=== PATIENT | male | born 1970 | race Caucasian/White ===

== ENCOUNTER 2018-01-21 18:48 | Emergency (ER) | payer BC ==
[2018-01-21] MEDS ORDERED: Rocephin 1000 MG INJ IM ONE (19:10)
[2018-01-21] MEDS ORDERED: XYLOCAINE 1%/Epi 1:100000 MDV 20 ML IJ ONE (19:11)
[2018-01-21] MEDS ORDERED: Adacel Vial IM ONE ×2 (19:11→19:16)
[2018-01-21] MEDS ORDERED: BACIGUENT PACKET TP ONE (19:11)
[2018-01-21] MEDS ORDERED: BACIGUENT PACKET ONE ×2 (19:15→21:16)
[2018-01-21] MEDS ORDERED: XYLOCAINE 1%/Epi 1:100000 MDV 20 ML ONE (19:15)
[2018-01-21] MEDS ORDERED: Rocephin 1000 MG INJ ONE (19:15)
--- NOTE | 2018-01-21 19:18 | ERPHSYRPT ---
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 LAST TETANUS IS UNKNOWN. Allergies/Adverse Reactions: No Known Drug Allergies Allergy (Verified 01/21/18 18:58) Home Medications: Oxycodone HCl/Acetaminophen [Oxycodon-Acetaminophen 7.5-325] 1 tab PO UD [History] Hx Tetanus, Diphtheria Vaccination/Date Given: No Hx Influenza Vaccination/Date Given: No Hx Pneumococcal Vaccination/Date Given: No Immunizations Up to Date: Yes - Review of Systems Skin: Other (LACERATION OF THE LEFT KNEE TODAY) - Past Medical History Pertinent Past Medical History: Yes Neurological History: No Pertinent History ENT History: No Pertinent History Cardiac History: No Pertinent History Respiratory History: No Pertinent History Endocrine Medical History: No Pertinent History Musculoskeletal History: Other GI Medical History: No Pertinent History History: No Pertinent History Psycho-Social History: No Pertinent History Male Reproductive Disorders: No Pertinent History Other Medical History: scoleosis - Past Surgical History Past Surgical History: Yes Gastrointestinal: Hernia Repair Other Surgical History: rt and left inguinal hernia repairs. orif of rt hand with pins - Social History Smoking Status: Current every day smoker How long have you smoked: 20yrs Exposure to second hand smoke: Yes Drug Use: none Patient Lives Alone: No - Nursing Vital Signs Nursing Vital Signs: Initial Vital Signs Temperature 99 F 01/21/18 18:55 Pulse Rate 99 H 01/21/18 18:55 Respiratory Rate 18 01/21/18 18:55 Blood Pressure 148/100 01/21/18 18:55 O2 Sat by Pulse Oximetry 98 01/21/18 18:55 Pain Scale Pain Intensity 0 - Physical Exam General Appearance: alert Hips Exam: left: normal range of motion Legs Exam: left leg: normal range of motion Knees Exam: left knee: normal range of motion Ankle Exam: left ankle: normal range of motion Foot Exam: left foot: normal range of motion Neuro/Tendon Exam: normal sensation, normal motor functions, normal tendon functions Mental Status Exam: alert, cooperative Skin Exam: laceration (7 CM & 3 CM LACERATIONS OF THE LEFT KNEE OVER PATELLA.) SpO2: 98 Oxygen Delivery: Room Air Procedures - Laceration/Wound Repair Left Knee Wound Location: Left (KNEE(7 CM & 3 CM LACERATIONS OF THE LEFT KNEE = 10 CM TOTAL).) Wound Length (cm): 10 Wound's Depth, Shape: superficial Wound Explored: clean Irrigated: Yes Hibiclens Prep: Yes Anesthesia: 1% lidocaine w/ Epi Volume Anesthetic (ccs): 3 Wound Repaired With: sutures Suture Size/Type: 4-0, prolene Layer Closure?: No - Course Nursing assessment & vital signs reviewed: Yes Ordered Tests: Active Orders 24 hr Category Date Time Status Prepare for Sutures STAT Care 01/21/18 19:11 Active Sutures STAT Care 01/21/18 19:12 Active Wound Care STAT Care 01/21/18 19:11 Active Medication Summary Discontinued Medications Generic Name Dose Route Start Last Admin Trade Name Freq PRN Reason Stop Dose Admin Bacitracin 0.9 gm 01/21/18 19:11 01/21/18 19:23 Baciguent Packet TP 01/21/18 19:12 0.9 gm STAT ONE Administration Bacitracin Confirm 01/21/18 19:15 Baciguent Packet Administered 01/21/18 19:16 Dose 1 gm .ROUTE .STK-MED ONE Ceftriaxone Sodium 1,000 mg 01/21/18 19:10 01/21/18 19:25 Rocephin 1000 Mg Inj IM 01/21/18 19:11 1,000 mg STAT ONE Administration Ceftriaxone Sodium Confirm 01/21/18 19:15 Rocephin 1000 Mg Inj Administered 01/21/18 19:16 Dose 1,000 mg .ROUTE .STK-MED ONE Diphtheria/Tetanus/Acell Pertussis 0.5 ml 01/21/18 19:11 01/21/18 19:23 Adacel Vial IM 01/21/18 19:12 0.5 ml .ONCE ONE Administration Diphtheria/Tetanus/Acell Pertussis Confirm 01/21/18 19:16 Adacel Vial Administered 01/21/18 19:17 Dose 0.5 ml IM .STK-MED ONE Lidocaine HCl Confirm 01/21/18 19:19 Xylocaine 1% Hcl 20 Ml Mdv Administered 01/21/18 19:20 Dose 3 ml .ROUTE .STK-MED ONE Lidocaine/Epinephrine 5 ml 01/21/18 19:11 01/21/18 19:25 Xylocaine 1%/Epi [id number] Mdv 20 Ml IJ 01/21/18 19:12 5 ml STAT ONE Administration Lidocaine/Epinephrine Confirm 01/21/18 19:15 Xylocaine 1%/Epi 1:[id number] Mdv 20 Ml Administered 01/21/18 19:16 Dose 5 ml .ROUTE .STK-MED ONE - Departure Time of Disposition: 21:07 Departure Disposition: Home Clinical Impression: 7 CM & 3 CM LACERATIONS OF THE LEFT KNEE Condition: Stable Critical Care Time: No Referrals: YIN LUTHER [Primary Care Provider] - Instructions: Laceration Repair With Stitches (DC) Additional Instructions: FOLLOW UP WITH PRIVATE DOCTOR TOMORROW. ELEVATE LEFT KNEE ABOVE HEART LEVEL FOR 24 HOURS. KEEP CLEAN & DRY. NEOSPORIN & BANDAGE DAILY FOR THE NEXT 10 DAYS. HAVE SUTURES REMOVED IN 10 DAYS. Prescriptions: Cephalexin Monohydrate [Keflex] 500 mg PO TID #30 capsule
[2018-01-21] MEDS ORDERED: XYLOCAINE 1% HCL 20 ML MDV ONE (19:19)
[2018-01-21 21:14] VITALS: O2SAT 95
[2018-01-21 21:19] VITALS: BP 145/104; PULSE 100
== END 2018-01-21 21:20 | disposition home or self-care (01) ==
LOC: ED 18:48
PROC: 0HQLXZZ Repair Left Lower Leg Skin, External Approach (ICD-10-PCS; principal; 2018-01-21)
DX: S81.012A Laceration without foreign body, left knee, initial encounter (principal); W29.3XXA Contact with powered garden and outdoor hand tools and machinery, initial encounter
CPT/HCPCS: 12004; 90471; 90715; 96372; 99284; J0696; A9270-GY